=== PATIENT | male | born 1990 | race Caucasian/White ===

== ENCOUNTER 2018-03-17 23:26 | Inpatient (IN) | payer OTHER ==
[2018-03-17] MEDS ORDERED: VANCOMYCIN IV PER PHARMACY 1 EACH MISC MISCELLANE PRN (23:49)
[2018-03-18] MEDS ORDERED: VANCOMYCIN 1,250 MG in SODIUM CHLORIDE 0.9% 250 ML IVPB ONE (00:30)
--- NOTE | 2018-03-18 00:42 | XR ---
EXAMINATION TYPE: XR hand complete LT DATE OF EXAM: 03/18/2018 COMPARISON: NONE HISTORY: Pain and swelling TECHNIQUE: 3 views FINDINGS: There is soft tissue swelling on the dorsum of the hand. Metacarpals are intact. I see no f racture nor dislocation. There are no erosions. IMPRESSION: Soft tissue swelling. No fracture seen.
[2018-03-18 01:15] LABS: Basophils % (A) 0 %; Eosinophils # (A) 0.2 k/uL (0-0.7); Eosinophils % (A) 2 %; HCT 37.2 % (39.0-53.0); HGB 12.4 gm/dL (13.0-17.5); Lymphocytes # (A) 1.4 k/uL (1.0-4.8); Lymphocytes % (A) 16 %; MCH 28.9 pg (25.0-35.0); MCHC 33.3 g/dL (31.0-37.0); MCV 86.7 fL (80.0-100.0); Monocytes # (A) 0.8 k/uL (0-1.0); Monocytes % (A) 8 %; Neutrophils # (A) 6.7 k/uL (1.3-7.7); Neutrophils % (A) 72 %; Platelet Count 233 k/uL (150-450); RBC 4.29 m/uL (4.30-5.90); RDW 13.3 % (11.5-15.5); WBC 9.2 k/uL (3.8-10.6)
[2018-03-18 01:21] LABS: ALT 20 U/L (21-72); AST 13 U/L (17-59); Albumin 4.2 g/dL (3.5-5.0); Alkaline Phosphatase 100 U/L (38-126); Anion Gap 7 mmol/L; Blood Urea Nitrogen 11 mg/dL (9-20); Calcium 9.2 mg/dL (8.4-10.2); Carbon Dioxide 27 mmol/L (22-30); Chloride 107 mmol/L (98-107); Glucose 94 mg/dL (74-99); Potassium 4.6 mmol/L (3.5-5.1); Sodium 141 mmol/L (137-145); Total Bilirubin 0.4 mg/dL (0.2-1.3); Total Protein 7.4 g/dL (6.3-8.2)
[2018-03-18 01:22] LABS: INR 0.9 (<1.2)
[2018-03-18 01:23] LABS: Partial Thromboplastin Time 25.3 sec (22.0-30.0); Prothrombin Time 10.2 sec (9.0-12.0)
--- NOTE | 2018-03-18 02:02 | ED ---
General Adult HPI - General Chief complaint: Skin/Abscess/Foreign Body Stated complaint: Abcess L hand Source: patient, RN notes reviewed Mode of arrival: ambulatory Limitations: no limitations - History of Present Illness Initial comments: 27-year-old male presents to the emergency department for a chief complaint of left hand swelling 4 days. Patient states he tried to inject Suboxone into his left hand. He states he "missed his vein". Patient states that since then he has had hand swelling and pain. He denies fevers or chills. He does admit to previous history of heroin abuse. Denies any known MRSA history. Patient has no other complaints at this time including shortness of breath, chest pain, abdominal pain, nausea or vomiting, headache, or visual changes. - Related Data Allergies Allergy/AdvReac Type Severity Reaction Status Date / Time No Known Allergies Allergy Verified 03/17/18 23:38 Review of Systems ROS Statement: Those systems with pertinent positive or pertinent negative responses have been documented in the HPI. ROS Other: All systems not noted in ROS Statement are negative. Past Medical History Past Medical History: No Reported History History of Any Multi-Drug Resistant Organisms: None Reported Additional Past Surgical History / Comment(s): Surgey on previous abcess Past Psychological History: No Psychological Hx Reported Smoking Status: Current every day smoker Past Alcohol Use History: Rare Past Drug Use History: Heroin, IV Drug Use, Marijuana, Prescription Drug Abuse General Exam Limitations: no limitations General appearance: alert, in no apparent distress Head exam: Present: atraumatic, normocephalic, normal inspection Eye exam: Present: normal appearance, PERRL, EOMI. Absent: scleral icterus, conjunctival injection, periorbital swelling ENT exam: Present: normal exam, mucous membranes moist Neck exam: Present: normal inspection, full ROM. Absent: tenderness, meningismus, lymphadenopathy, thyromegaly Respiratory exam: Present: normal lung sounds bilaterally. Absent: respiratory distress, wheezes, rales, rhonchi, stridor Cardiovascular Exam: Present: regular rate, normal rhythm, normal heart sounds. Absent: systolic murmur, diastolic murmur, rubs, gallop, clicks Extremities exam: Present: tenderness (Tenderness noted over the general left hand worse on the medial aspect.), normal capillary refill (Capillary refill is less than 2 seconds in the distal digits of the left hand.), other (Significant edema noted of left hand, worse on lateral aspect). Absent: full ROM (Patient does have limited range of motion of the left fourth and fifth fingers. But is able to flex and extend at the MCP joint about 15.) Neurological exam: Present: alert, oriented X3, CN II-XII intact Psychiatric exam: Present: normal affect, normal mood Course Vital Signs 03/17/18 23:34 Temperature 98.2 F Pulse Rate 103 H Respiratory 20 Rate Blood Pressure 149/94 O2 Sat by Pulse 99 Oximetry Medical Decision Making - Medical Decision Making 27-year-old male presents to the emergency department for a chief complaint of left hand pain and swelling. 4 days ago patient attempted to inject Suboxone into the left hand. He has had pain and swelling worsening since that time. CBC CMP unremarkable. Lactic 1.1. Blood cultures pending. Given patient's history of IV drug abuse vancomycin was started. X-ray shows soft tissue swelling, no fracture seen. No foreign bodies noted such as needed. At this time no evidence of compartment syndrome this patient does have capillary refill intact in the left fingers. Patient will be admitted for further management. - Lab Data Result diagrams: 03/18/18 00:55 03/18/18 00:55 Lab Results 03/18/18 03/18/18 03/18/18 Range/Units 00:55 00:55 00:55 WBC 9.2 (3.8-10.6) k/uL RBC 4.29 L (4.30-5.90) m/uL Hgb 12.4 L (13.0-17.5) gm/dL Hct 37.2 L (39.0-53.0) % MCV 86.7 (80.0-100.0) fL MCH 28.9 (25.0-35.0) pg MCHC 33.3 (31.0-37.0) g/dL RDW 13.3 (11.5-15.5) % Plt Count 233 (150-450) k/uL Neutrophils % 72 % Lymphocytes % 16 % Monocytes % 8 % Eosinophils % 2 % Basophils % 0 % Neutrophils # 6.7 (1.3-7.7) k/uL Lymphocytes # 1.4 (1.0-4.8) k/uL Monocytes # 0.8 (0-1.0) k/uL Eosinophils # 0.2 (0-0.7) k/uL Basophils # 0.0 (0-0.2) k/uL PT (9.0-12.0) sec INR (<1.2) APTT (22.0-30.0) sec Sodium 141 (137-145) mmol/L Potassium 4.6 (3.5-5.1) mmol/L Chloride 107 (98-107) mmol/L Carbon Dioxide 27 (22-30) mmol/L Anion Gap 7 mmol/L BUN 11 (9-20) mg/dL Creatinine 0.70 (0.66-1.25) mg/dL Est GFR (CKD-EPI)AfAm >90 (>60 ml/min/1.73 sqM) Est GFR (CKD-EPI)NonAf >90 (>60 ml/min/1.73 sqM) Glucose 94 (74-99) mg/dL Plasma Lactic Acid Abe 1.1 (0.7-2.0) mmol/L Calcium 9.2 (8.4-10.2) mg/dL Total Bilirubin 0.4 (0.2-1.3) mg/dL AST 13 L (17-59) U/L ALT 20 L (21-72) U/L Alkaline Phosphatase 100 (38-126) U/L Total Protein 7.4 (6.3-8.2) g/dL Albumin 4.2 (3.5-5.0) g/dL 03/18/18 Range/Units 00:55 WBC (3.8-10.6) k/uL RBC (4.30-5.90) m/uL Hgb (13.0-17.5) gm/dL Hct (39.0-53.0) % MCV (80.0-100.0) fL MCH (25.0-35.0) pg MCHC (31.0-37.0) g/dL RDW (11.5-15.5) % Plt Count (150-450) k/uL Neutrophils % % Lymphocytes % % Monocytes % % Eosinophils % % Basophils % % Neutrophils # (1.3-7.7) k/uL Lymphocytes # (1.0-4.8) k/uL Monocytes # (0-1.0) k/uL Eosinophils # (0-0.7) k/uL Basophils # (0-0.2) k/uL PT 10.2 (9.0-12.0) sec INR 0.9 (<1.2) APTT 25.3 (22.0-30.0) sec Sodium (137-145) mmol/L Potassium (3.5-5.1) mmol/L Chloride (98-107) mmol/L Carbon Dioxide (22-30) mmol/L Anion Gap mmol/L BUN (9-20) mg/dL Creatinine (0.66-1.25) mg/dL Est GFR (CKD-EPI)AfAm (>60 ml/min/1.73 sqM) Est GFR (CKD-EPI)NonAf (>60 ml/min/1.73 sqM) Glucose (74-99) mg/dL Plasma Lactic Acid Abe (0.7-2.0) mmol/L Calcium (8.4-10.2) mg/dL Total Bilirubin (0.2-1.3) mg/dL AST (17-59) U/L ALT (21-72) U/L Alkaline Phosphatase (38-126) U/L Total Protein (6.3-8.2) g/dL Albumin (3.5-5.0) g/dL Disposition Clinical Impression: Infection of left hand, IV drug abuse Disposition: ADMITTED IP TO THIS HOSP Condition: Fair Is patient prescribed a controlled substance at d/c from ED?: No Referrals: Dakotah Maravilla MD [Primary Care Provider] - 1-2 days Time of Disposition: 02:13
[2018-03-18] MEDS ORDERED: ACETAMINOPHEN TAB 325 MG TAB PO PRN (02:09)
[2018-03-18] MEDS ORDERED: ONDANSETRON 4 MG/2 ML VIAL IVP PRN (02:09)
[2018-03-18] MEDS ORDERED: NALOXONE 0.4 MG/ML 1 ML VIAL IV PRN (02:09)
[2018-03-18] MEDS: KETOROLAC 30 MG/ML 1 ML VIAL IVP PRN ×4 (02:44→23:07)
[2018-03-18] MEDS: SODIUM CHLORIDE 0.9% 1,000 ML IV SCH ×3 (04:05→22:13)
--- NOTE | 2018-03-18 07:31 | P.HPIM ---
History of Present Illness H&P Date: 03/18/18 Chief Complaint: Hand swelling 27-year-old male with history of drug abuse. Patient presented to the hospital with 3 day history of left hand swelling and pain. He denies any fevers or chills. He admits to injecting Suboxone crushed pills into his hands due to his addiction seeking a high. Patient tried to self medicate took some steroids that he had a home which initially helped with the swelling however since Monday the pain got worse and swelling continued to progress. Patient can't make a fist due to the swelling. But denies any numbness or tingling in the fingertips. He denies any chest pain trouble breathing fevers chills nausea vomiting abdominal pain or chest pain. Patient reports that this has happened before due to similar event of injecting self with drugs. In the ED cultures were obtained and patient was started on vancomycin. Hand x- ray showed no fractures, only showed some swollen soft tissue Review of Systems Pertinent positives as noted in HPI. All other systems were reviewed and are negative Past Medical History Past Medical History: No Reported History History of Any Multi-Drug Resistant Organisms: None Reported Additional Past Surgical History / Comment(s): Surgey on previous abcess Past Psychological History: No Psychological Hx Reported Smoking Status: Current every day smoker Past Alcohol Use History: Rare Past Drug Use History: Heroin, IV Drug Use, Marijuana, Prescription Drug Abuse Medications and Allergies Allergies Allergy/AdvReac Type Severity Reaction Status Date / Time No Known Allergies Allergy Verified 03/17/18 23:38 Physical Exam Vitals: Vital Signs Temp Pulse Resp BP Pulse Ox 03/18/18 02:55 85 16 131/86 98 03/17/18 23:34 98.2 F 103 H 20 149/94 99 Intake and Output 03/17/18 03/17/18 03/18/18 14:59 22:59 06:59 Intake Total 490 Balance 490 Intake: Intake, IV Titration 490 Amount Sodium Chloride 0.9% 1, 240 000 ml @ 120 mls/hr IV . Q8H20M STELLA Rx#:[id number] Vancomycin 1,250 mg In 250 Sodium Chloride 0.9% 250 ml @ 250 mls/hr IVPB Q8H STELLA Rx#:[id number] Other: Weight 65.771 kg Constitutional: No acute distress, conversant, pleasant Eyes: Anicteric sclerae, moist conjunctiva, no lid-lag Pupils equal round reactive to light ENMT: NC/AT Oropharynx clear, no erythema, no exudates Neck: Supple, FROM, no masses, or JVD No carotid bruits No thyromegaly Lungs: Clear to auscultation Clear to percussion Normal respiratory effort, no accessory muscle use Cardiovascular: Heart regular in rate and rhythm, No murmurs, gallops, or rubs No peripheral edema Abdominal: Soft Nontender, no guarding, rebound or rigidity Abdomen moving with respiration Normoactive bowel sounds No hepatomegaly, No splenomegaly No palpable mass No abdominal wall hernia noted Skin: Normal temperature, tone, texture, turgor No subcutaneous nodules No rash, lesions No ulcers Extremities: Swollen left hand, tenderness to palpation especially over the medial aspect of the hand over the hyperthenar muscle which is the injection site seems like there is an area of collection with induration and erythema. The whole hand is swollen fingers are so only slightly swollen. Capillary refill is immediate in all fingers sensation is intact over all fingers and hand. No digital cyanosis No clubbing Pedal pulses intact and symmetrical Radial pulses intact and symmetrical No calf tenderness Psychiatric: Alert and oriented to person, place and time Appropriate affect fair judgment Neuro Muscles Strength 5/5 in all 4 extremities Sensation to light touch grossly present throughout Cranial nerves II-XII grossly intact No focal sensory deficits Lymphatics: no palpable cervical or supraclavicular , or inguinal lymph nodes Results CBC & Chem 7: 03/18/18 00:55 03/18/18 00:55 Labs: Abnormal Lab Results - Last 24 Hours (Table) 03/18/18 03/18/18 Range/Units 00:55 00:55 RBC 4.29 L (4.30-5.90) m/uL Hgb 12.4 L (13.0-17.5) gm/dL Hct 37.2 L (39.0-53.0) % AST 13 L (17-59) U/L ALT 20 L (21-72) U/L Thrombosis Risk Factor Assmnt - Choose All That Apply Any of the Below Risk Factors Present?: No Other Risk Factors: No Other congenital or acquired thrombophilia - If yes, enter type in comment: No Thrombosis Risk Factor Assessment Level: Very Low Risk Assessment and Plan Assessment: 27-year-old male with history of drug abuse admitted as an inpatient with anticipated length of stay more than 48 hours due to cellulitis and possible abscess in the left hand with hand swelling. Patient admitted for IV antibiotics and orthopedic evaluation Plan: Left hand cellulitis and possible abscess with swelling. Cultures obtained Vancomycin Patient will require hand surgery evaluation, orthopedic consulted Elevation of the hand Close monitoring of neurovascular exam of the left hand NSAIDs to help with swelling DVT prophylaxis heparin subcu 3 times a day Preformed a thorough record review from recent hospitalization previous admissions for injection site infections and cellulitis Surrogate decision-maker: Patient mother CODE STATUS: Full code Discussed with: Patient, ER, RN Anticipated discharge: 48-[address]: Pending clinical course A total of 60 minutes was spent on the care of this complex patient more than 50 % of the time was spent in counseling and care coordination.
--- NOTE | 2018-03-18 08:59 | P.CNOR ---
History of Present Illness - [facility] Consult date: 03/18/18 History of present illness: The patient is a right-hand dominant 27-year-old male with a long-standing history of drug abuse who presents admitted to internal medicine with a left hand abscess. According to the patient he placed a Suboxone tablet in his mouth , chewed it in his mouth until it was a fine paste, and then injected it along the ulnar border of his hand to get high. He's had increasing pain and swelling in the left hand. He initially tried to self medicate with oral steroids. He had increasing pain and swelling so presented to the emergency department. He was admitted to internal medicine and an orthopedic surgery consult was placed. This morning the patient is complaining of isolated pain in his left hand. He denies fevers or chills. Unfortunately the patient had a large breakfast at 7 AM of eggs and potatoes as he was not made nothing by mouth after the surgical consult was placed. Past Medical History Past Medical History: No Reported History History of Any Multi-Drug Resistant Organisms: None Reported Additional Past Surgical History / Comment(s): Surgey on previous abcess Past Psychological History: No Psychological Hx Reported Smoking Status: Current every day smoker Past Alcohol Use History: Rare Past Drug Use History: Heroin, IV Drug Use, Marijuana, Prescription Drug Abuse Medications and Allergies Home Medications Medication Instructions Recorded Confirmed Type Ibuprofen [Motrin Ib] 400 mg PO Q6H PRN 03/18/18 03/18/18 History Allergies Allergy/AdvReac Type Severity Reaction Status Date / Time No Known Allergies Allergy Verified 03/18/18 08:27 Physical Examination The patient is resting comfortably in bed and is in no apparent distress. He is alert and easily able to answer questions. His head is normocephalic and atraumatic. He demonstrates nonlabored breathing with symmetric chest expansion. His abdomen is nonobese. A focused examination of the left upper extremity was conducted. On inspection there is erythema and swelling diffusely over the ulnar border of the hand. There is a large fluctuant mass over the hyperthenar eminence over the ulnar border of the hand. There are needle tracks along the ulnar border of the hand. There is no active drainage or subcutaneous crepitance. The remainder of the hand is swollen but there are no areas of fluctuance or tenderness. Sensation is intact to light touch throughout the left hand. He has pain-free motion of all fingers. Radial pulses palpable. The fingers are warm and well perfused with brisk capillary refill. Results - Labs Labs: Abnormal Lab Results - Last 24 Hours (Table) 03/18/18 03/18/18 Range/Units 00:55 00:55 RBC 4.29 L (4.30-5.90) m/uL Hgb 12.4 L (13.0-17.5) gm/dL Hct 37.2 L (39.0-53.0) % AST 13 L (17-59) U/L ALT 20 L (21-72) U/L H & H 03/18/18 Range/Units 00:55 Hgb 12.4 L (13.0-17.5) gm/dL Hct 37.2 L (39.0-53.0) % Coagulation 03/18/18 Range/Units 00:55 INR 0.9 (<1.2) Result Diagrams: 03/18/18 00:55 03/18/18 00:55 Assessment and Plan (1) IV drug abuse Current Visit: Yes Status: Acute Code(s): F19.10 - OTHER PSYCHOACTIVE SUBSTANCE ABUSE, UNCOMPLICATED SNOMED Code(s): 226653806 (2) Infection of left hand Current Visit: Yes Status: Acute Code(s): L08.9 - LOCAL INFECTION OF THE SKIN AND SUBCUTANEOUS TISSUE, UNSP SNOMED Code(s): 667064188 Plan: The patient is a current cigarette smoker, IV drug abuser, and prescription medication abuser who is currently admitted to internal medicine with a left hand abscess. I recommend incision and drainage of the abscess in his hand. The patient has previously had similar infections in the contralateral arm that have required surgical debridements. He is well aware of the potential risks following surgery. He also understands that he is at a higher risk of having a complication due to his cigarette smoking and drug abuse. Unfortunately the patient was not made NPO and had a large breakfast at 7 AM this morning. I spoke with anesthesia and they would like to wait 8 hours prior to providing anesthesia to this patient. We will plan on surgical debridement later this afternoon when he has been NPO for 8 hours. Following surgery he will need an infectious disease and wound consultation for management of his antibiotics and wound care going forward. Time with Patient: Greater than 30
[2018-03-18] MEDS: HEPARIN SODIUM,PORCINE 5,000 UNIT/ML 1 ML VIAL SQ SCH ×3 (11:01→23:07)
[2018-03-18] MEDS: VANCOMYCIN 1,250 MG in SODIUM CHLORIDE 0.9% 250 ML IVPB SCH ×2 (11:02→18:27)
--- NOTE | 2018-03-18 12:24 | P.PN ---
Progress Note - Text Progress Note Date: 03/18/18 27-year-old male with PMH of IV drug use presents to the ED for a three-day history of left hand swelling and pain after injecting into his left hand. Patient was seen and examined around 12:15 PM. No acute events overnight. Patient continues to complain of left hand pain and swelling, 8 out of 10 in severity. Patient states that portal brings it down to about a 4. He denies any chest pain, shortness of breath or palpitations. No fever or chills. No nausea or vomiting. The left hand is grossly swollen. Fluctuant mass over the hyperthenar eminence. No drainage. Sensation is intact to touch throughout the left hand. Unable to make a fist due to pain. Radial pulses 2+. Left and cellulitis and possible abscess IV drug use He has been evaluated by orthopedic surgery and there is plans for incision and drainage in the afternoon. We will consult infectious disease. We will continue vancomycin IV per levels. Tylenol or Toradol as needed for pain. We'll follow cultures.
[2018-03-18] MEDS ORDERED: MIDAZOLAM 2 MG/2 ML VIAL ONE (14:54)
[2018-03-18] MEDS ORDERED: PROPOFOL 10 MG/ML 20 ML VIAL IV ONE (14:54)
[2018-03-18] MEDS ORDERED: KETAMINE 10 MG/ML 20 ML VIAL ONE (14:54)
[2018-03-18] MEDS ORDERED: KETOROLAC 30 MG/ML 1 ML VIAL ONE (14:54)
[2018-03-18] MEDS ORDERED: SODIUM CHLORIDE 0.9% 1,000 ML IV ONE (14:59)
[2018-03-18] MEDS ORDERED: BUPIVACAINE (PF) 0.25% 30 ML VIAL SQ ONE (15:14)
--- NOTE | 2018-03-18 15:42 | P.OP ---
Date of Procedure: 03/18/18 Preoperative Diagnosis: 1. Left hand hypothenar abscess 2. Current every day cigarette smoker 3. Current prescription drug abuser 4. History of IV drug abuse 5. History of prior deep abscess requiring surgical drainage and the contralateral hand Postoperative Diagnosis: Same Procedure(s) Performed: Incision and drainage of left hand hypothenar abscess Anesthesia: MAC Surgeon: Brennan Akbar Want Ad Receiver #1: Abril Bryan Estimated Blood Loss (ml): 10 IV fluids (ml): 500 Pathology: other (Deep cultures sent) Condition: stable Disposition: PACU Indications for Procedure: The patient is a 27-year-old male with a medical history significant for cigarette smoking, prescription drug abuse, a history of prior IV drug abuse and previous infection in the right hand requiring surgical debridement who is admitted to internal medicine with a left hand abscess. According to the patient he was taking Suboxone pills, checking them up into a fine paste, and injecting them into his left hand. This past Monday he developed increased pain and swelling in the left hand. He tried to self medicate with oral steroids. His pain and swelling increased and he presented to the ER yesterday. He was admitted to internal medicine for IV antibiotics and a surgical consultation. I examined the patient this morning and he was found to have an area of fluctuance over the left hyperthenar eminence. I discussed and recommended surgical debridement in the operating room. The patient is well aware of the potential risks and complications of surgery having previously undergone a similar procedure for the same problem in the right arm. The risks discussed include risk of anesthesia, superficial infection, deep infection, spread of the infection throughout his hand and into the forearm, systemic dissemination of the infection, damage to local blood vessels or nerves, damage to tendon the structures, spread of the infection to the bone or joints in the hand and arm, need for further surgery, medical complications, and possibly loss of life or limb. The patient voiced his understanding of this. We also discussed that he is at a much higher risk of having a complication due to his current cigarette smoking and drug abuse. Operative Findings: Prior to receiving anesthesia a detailed examination of the left arm was conducted. On inspection there was a tense abscess and needle tracts over the height hypo thenar eminence of the hand. The remainder of the hand was diffusely swollen with mild erythema, but minimal tenderness and no other areas of fluctuance. There was a large amount of foul-smelling pus expressed from the left hand. 2 deep cultures were taken and sent to the lab. Description of Procedure: The patient was identified in preoperative holding and the correct left arm was marked with my initials. I reviewed the consent form with the patient and all of his questions were answered. The patient was then brought back to the operating room. A sedation with propofol was given by anesthesia. His arm was positioned on an arm table. A tourniquet was applied to the proximal aspect of the left arm but was not inflated. A timeout was performed identifying the correct patient, operative extremity, and procedure. 5 mL's of half percent Marcaine was injected around the hyperthenar eminence. A longitudinal incision was then made directly over the hyperthenar eminence and area of maximum fluctuance. There was a tense abscess and immediately upon cutting into the subcutaneous tissue pus was expressed and shot across the room. There is a large amount of foul-smelling pus. A medium hemostat was then used to probe the wound and break up loculations. The abscess over the ulnar border of the hand was thoroughly decompressed. The wound was then copiously irrigated with 1 L of sterile saline and cystoscopy tubing. The wound was packed with iodoform and left open to drain. A sterile dressing was applied. The patient was awoken from his anesthetic and transferred back to PACU having had the procedure well. Plan: The patient is to receive IV antibiotics under the discretion of infectious disease. Deep cultures were taken and are pending. We will plan on changing his dressing and pulling out the iodoform tomorrow. At that time he can start twice daily warm water soaks or whirlpools if available at this facility. We will continue to closely monitor his hand, but at the present time have no plans for further surgical intervention unless he worsens. IV antibiotics and wound care will be deferred to infectious disease and the wound team. Will continue to closely follow while he is in the hospital.
[2018-03-18 15:57] LABS: Appearance,Urine Clear (Clear); Bilirubin,Urine Negative (Negative); Blood,Urine Negative (Negative); Color,Urine Light Yellow; Glucose,Urine (UA) Negative (Negative); Ketones,Urine Negative (Negative); Leukocyte Esterase,Urine Negative (Negative); Nitrite,Urine Negative (Negative); PH, Urine 6.5 (5.0-8.0); Protein,Urine Negative (Negative); Urobilinogen,Urine <2.0 mg/dL (<2.0)
[2018-03-19] MEDS: VANCOMYCIN 1,250 MG in SODIUM CHLORIDE 0.9% 250 ML IVPB SCH ×2 (01:33→09:39)
[2018-03-19] MEDS: SODIUM CHLORIDE 0.9% 1,000 ML IV SCH ×3 (04:33→21:47)
--- NOTE | 2018-03-19 06:21 | CONS ---
CONSULTATION DATE OF SERVICE: 03/18/2018 REASON FOR CONSULTATION: Left hand abscess. HISTORY OF PRESENT ILLNESS: The patient is a 27-year-old male with past medical history significant for IV drug use. The patient routinely injects into his left hand and wrist area. The patient did mention that he missed injecting into vein about 3 days ago and subsequently started having pain and swelling to the left hand area, mostly on the lateral side. The patient did admit to the pain to be throbbing at times sharp almost 6 to 7 out of 10, when he presented to the hospital with associated swelling and redness. The patient did have some chills, but did not recall any high-grade fever with these symptoms. The patient was evaluated by the ER physician. On arrival to the ER, the patient did not have any high-grade fever. His temperature has been 99.1. The patient's white count was also elevated and the patient did have x-rays of the hand, which shows soft tissue swelling, no fracture seen. The patient was evaluated by Orthopedics, diagnosed with an abscess. He was taken to the OR this afternoon, diagnosed with left hand hypothenar abscess, status post incision and drainage of this abscess. Culture has been obtained which are currently pending. The patient was started on vancomycin. Infectious Disease was consulted for further recommendation regarding antibiotic therapy. REVIEW OF SYSTEMS: Positive points have been mentioned in HPI. Rest of the systems has been negative. PAST MEDICAL HISTORY: IV drug use. abscess. PAST SURGICAL HISTORY: Surgery for drainage of the abscess. SOCIAL HISTORY: Positive for smoking. Rarely drinks. Admit to heroin and IV drug use. FAMILY HISTORY: No pertinent findings noticed. ALLERGIES: No known drug allergies. MEDICATIONS: Medications include the patient is currently on Tylenol, heparin, Toradol, vancomycin 1250 q.8 hour, Zofran. PHYSICAL EXAMINATION: On examination, blood pressure is 114/61 with a pulse of 102, temperature 99.1. He is 97% on room air. General description is a young male lying in bed in no distress. No tachypnea or accessory muscle of respiration use. HEENT examination shows slight pallor. No scleral icterus. Oral mucous membrane is dry. No pharyngeal erythema or thrush. NECK: Trachea central. No thyromegaly. LUNGS: Unlabored breathing, clear to auscultation anteriorly. HEART: S1, S2. Regular rate and rhythm. ABDOMEN: Soft, no tenderness. No guarding or rigidity. EXTREMITIES: No edema of feet. The left hand is currently dressed up, no obvious drainage on the dressing. LABS: Hemoglobin is 12.4, white count 9.2. BUN of 11, creatinine 0.70. Electrolytes are normal. Liver enzymes are normal. Culture obtained currently pending. DIAGNOSTIC IMPRESSION AND PLAN: Patient with left hand abscess from injection drug use and more likely from a gram- positive skin alli, gram-negative infection status post drainage. The patient currently does not look toxic or septic. PLAN: 1. Vancomycin pharmacy to dose target of 15 Vanco trough closely. 2. IV fluids. 3. We will follow on his clinical condition as well as culture to further adjust medication if needed. Thank you for this consultation. Will follow this patient along with you. MMALHAJIL / IJN: [id number] /
[2018-03-19] MEDS: KETOROLAC 30 MG/ML 1 ML VIAL IVP PRN ×3 (07:23→21:43)
[2018-03-19] MEDS: HEPARIN SODIUM,PORCINE 5,000 UNIT/ML 1 ML VIAL SQ SCH ×2 (07:25→17:07)
[2018-03-19] MEDS ORDERED: VANCOMYCIN TROUGH DUE 1 EACH MISC MISCELLANE ONE (08:00)
--- NOTE | 2018-03-19 09:17 | P.PN ---
Subjective Progress Note Date: 03/19/18 ( ) This patient is a lmyin-[id number] 27-year-old male with a long-standing history of drug abuse that is admitted to internal medicine for a left hand abscess. Per patient, he placed a Suboxone tablet in his mouth, chewed it until it was a paste, and injected it along the ulnar border of his hand to get high. He then experienced increasing swelling and pain to the hand, therefore he presented to the emergency department. He was admitted to internal medicine and an orthopedic consult was placed. Patient was taken to the operating room yesterday afternoon with Dr. Akbar for an incision and drainage of the left hand abscess. Currently, patient states he is doing well this morning. He states he is having pain in the left hand. He is tolerated diet well. He denies chest pain, shortness of breath, fevers, or chills. Objective - Vital Signs Vital signs: Vital Signs Temp 98.8 F 03/19/18 07:22 Pulse 88 03/19/18 07:22 Resp 16 03/19/18 07:33 BP 153/62 03/19/18 07:22 Pulse Ox 97 03/19/18 07:22 Intake & Output 03/18/18 03/19/18 03/19/18 18:59 06:59 18:59 Intake Total 570 Output Total 800 600 Balance -230 -600 Intake: IV 200 Intake, IV Titration 370 Amount Sodium Chloride 0.9% 1, 120 000 ml @ 0 mls/hr IV .STK -[facility] Rx#:[id number] Vancomycin 1,250 mg In 250 Sodium Chloride 0.9% 250 ml @ 250 mls/hr IVPB Q8H [facility] Rx#:[id number] Output: Urine 800 600 Other: # Voids 2 - Exam On examination, the patient is sitting up in bed in no acute distress. Patient is alert and oriented 3. Inspection of the left hand, it is dressed in an Max wrap. Dressing is taken down and reveals an incision along the hypothenar eminence, packed with iodoform. Small amount of foul smelling pus present on iodoform. Left hand is diffusely swollen. Left hand is tender to palpation along ulnar border. Patient is able to wiggle fingers. Fingers are warm and well -perfused. Sensation is intact to light touch of the hand. Iodoform is removed from incision. No evidence of pus in wound. - Labs CBC & Chem 7: 03/18/18 00:55 03/18/18 00:55 Labs: Microbiology - Last 24 Hours (Table) 03/18/18 00:55 Blood Culture - Preliminary Blood No Growth after 24 hours 03/18/18 Unknown Urine Culture - Preliminary Urine,Clean Catch Assessment and Plan Assessment: Left hand abscess status-post incision and drainage IV drug abuse Plan: - Iodoform removed from the left hand wound. Warm water soaks twice a day. - Deep cultures taken intraoperatively, we'll continue to follow. - Infectious disease consulted for antibiotics and wound care management. - We will continue to monitor his hand and follow closely. - Patient discussed with Dr. Akbar.
[2018-03-19] MEDS: VANCOMYCIN 1,500 MG in SODIUM CHLORIDE 0.9% 250 ML IVPB SCH (17:07)
[2018-03-20] MEDS: VANCOMYCIN 1,500 MG in SODIUM CHLORIDE 0.9% 250 ML IVPB SCH ×3 (01:03→17:48)
[2018-03-20 01:21] VITALS: RESP 16
[2018-03-20] MEDS: SODIUM CHLORIDE 0.9% 1,000 ML IV SCH ×3 (04:48→21:16)
--- NOTE | 2018-03-20 07:13 | PN ---
PROGRESS NOTE DATE OF SERVICE: 03/19/2018 REASON FOR FOLLOWUP: Left hand abscess. INTERVAL HISTORY: The patient is currently afebrile. He is breathing comfortably. Pain to the left hand is currently controlled. Patient denies having any chest pain, shortness of breath or cough. No abdominal pain or any diarrhea. PHYSICAL EXAMINATION: On examination, blood pressure 125/77 with a pulse of 76, temperature 98.7. He is 98% on room air. General description is a young male lying in bed in no acute in no distress. RESPIRATORY SYSTEM: Unlabored breathing, clear to auscultation anteriorly. HEART: S1, S2. Regular rate and rhythm. ABDOMEN: Soft, no tenderness. Left hand still has an area of swelling and redness with no significant slough tissue or drainage. LABS: Wound culture showing gram-positive cocci. Blood culture negative. DIAGNOSTIC IMPRESSION AND PLAN: Patient with left hand abscess, status post drainage. Culture currently showing gram- positive cocci, possible . The patient is currently on vancomycin, to continue. Local wound care with Aquacel silver dressing. Continue supportive care. MMODL / IJN: [id number] /
--- NOTE | 2018-03-20 07:16 | PN ---
PROGRESS NOTE DATE OF SERVICE: 03/19/2018 PRESENTING COMPLAINT: Left hand abscess. INTERVAL HISTORY: This is a patient who has been injecting IV Suboxone, did develop abscess in the hypothenar eminence area, status post I and D of the pus was obtained. Dressing in place. The patient has been doing IV Suboxone for the last 2 years. He crushes, the tablets, mixes it with water, stopped doing IV heroin about 2 years ago. The patient does marijuana about once or twice a week and smokes half a pack of cigarettes a day. REVIEW OF SYSTEMS: Done for constitutional, cardiovascular, GI, pulmonary; relevant findings as above. CURRENT MEDICATIONS: Reviewed that include IV vancomycin, IV Toradol. PHYSICAL EXAMINATION: Temperature 98.7, pulse 76, respiration 12, blood pressure 125/77, pulse ox 98% on room air. GENERAL APPEARANCE: Sitting up, comfortable. EYES: Pupils equal, conjunctivae are normal. NECK: JVD not raised, mass not palpable. RESPIRATORY: Effort normal. Lungs are clear. CARDIOVASCULAR: First and second sounds are normal, no edema. ABDOMEN: Soft, nontender. Liver and spleen not palpable. PSYCHIATRY: Alert and oriented x3. Mood and affect normal. EXTREMITIES: Left hand in a dressing. INVESTIGATIONS: No blood work from today. Vancomycin trough is noted. Cultures are pending. ASSESSMENT: 1. Left hand hypothenar abscess status post I and D, cultures pending. 2. Left hand cellulitis, status post from IV needle. 3. IV Suboxone misuse. 4. Chronic nicotine dependence, patient is a cigarette smoker. 5. Recreational marijuana use. PLAN: The patient is counseled at length about avoiding use of recreational drugs and the fact that he could no lose his hand to the worst with these activities for recreation. Patient is getting Toradol for his anti-inflammatory affect and also further wound care by Orthopedics. Patient also getting IV fluids. Will give the patient a nicotine patch nicotine patch and also give the patient Tylenol around the clock. SMOKING CESSATION COUNSELING: More than 3 minutes was spent on this aspect of the case. Will give the patient 14 mg nicotine patch. MMODL / IJN: [id number] /
[2018-03-20 08:12] LABS: Basophils % (A) 0 %; Eosinophils # (A) 0.1 k/uL (0-0.7); Eosinophils % (A) 3 %; HCT 33.8 % (39.0-53.0); HGB 10.5 gm/dL (13.0-17.5); Lymphocytes # (A) 1.4 k/uL (1.0-4.8); Lymphocytes % (A) 25 %; MCH 27.8 pg (25.0-35.0); MCHC 31.1 g/dL (31.0-37.0); MCV 89.2 fL (80.0-100.0); Mean Platelet Volume 7.2; Monocytes # (A) 0.4 k/uL (0-1.0); Monocytes % (A) 8 %; Neutrophils # (A) 3.4 k/uL (1.3-7.7); Neutrophils % (A) 62 %; Platelet Count 186 k/uL (150-450); RBC 3.79 m/uL (4.30-5.90); RDW 13.2 % (11.5-15.5); WBC 5.5 k/uL (3.8-10.6)
[2018-03-20 08:21] LABS: Anion Gap 6 mmol/L; Blood Urea Nitrogen 13 mg/dL (9-20); Carbon Dioxide 24 mmol/L (22-30); Chloride 111 mmol/L (98-107); Glucose 93 mg/dL (74-99); Potassium 4.5 mmol/L (3.5-5.1); Sodium 141 mmol/L (137-145)
[2018-03-20] MEDS: ENOXAPARIN 40 MG/0.4 ML SYRINGE SQ SCH (08:57)
[2018-03-20] MEDS: KETOROLAC 30 MG/ML 1 ML VIAL IVP PRN ×3 (08:58→23:13)
--- NOTE | 2018-03-20 11:21 | P.PN ---
Subjective Progress Note Date: 03/20/18 This patient is a vvtkh-[id number] 27-year-old male with a long-standing history of drug abuse that is admitted to internal medicine for a left hand abscess. Per patient, he placed a Suboxone tablet in his mouth, chewed it until it was a paste, and injected it along the ulnar border of his hand to get high. He then experienced increasing swelling and pain to the hand, therefore he presented to the emergency department. He was admitted to internal medicine and an orthopedic consult was placed. Patient was taken to the operating room yesterday afternoon with Dr. Akbar for an incision and drainage of the left hand abscess. Today's postoperative day #2. Patient states he is doing well this morning. He states he is having mild pain in the left hand, although pain is well- controlled at this time. He is tolerating diet well. He states he refused to soak his hand in warm water yesterday morning, although he is willing to soak it this morning. He denies chest pain, shortness of breath, nausea, vomiting, fevers, or chills. Vital signs stable. Objective - Vital Signs Vital signs: Vital Signs Temp 98.0 F 03/20/18 07:41 Pulse 51 L 03/20/18 07:41 Resp 16 03/20/18 07:41 BP 125/73 03/20/18 07:41 Pulse Ox 98 03/20/18 07:41 Intake & Output 03/19/18 03/20/18 03/20/18 18:59 06:59 18:59 Intake Total 1090 118 Balance 1090 118 Intake: Intake, IV Titration 1090 Amount Sodium Chloride 0.9% 1, 840 000 ml @ 0 mls/hr IV .[facility]K [facility] Rx#:[id number] Vancomycin 1,500 mg In 250 Sodium Chloride 0.9% 250 ml @ 250 mls/hr IVPB Q8H [facility] Rx#:[id number] Oral 118 Other: Voiding Method Toilet # Voids 2 - Exam On examination, the patient is sitting up in bed in no acute distress. Patient is alert and oriented 3. Inspection of the left hand, it is dressed in an Max wrap. Dressing is taken down and reveals an incision along the hypothenar eminence. There is foul smelling pus draining from the incision with surrounding erythema. Left hand is diffusely swollen. Left hand is tender to palpation along ulnar border. Patient is able to wiggle fingers. Fingers are warm and well-perfused. Sensation is intact to light touch of the hand. - Labs CBC & Chem 7: 03/20/18 06:57 03/20/18 06:57 Labs: Abnormal Lab Results - Last 24 Hours (Table) 03/20/18 03/20/18 Range/Units 06:57 06:57 RBC 3.79 L (4.30-5.90) m/uL Hgb 10.5 L (13.0-17.5) gm/dL Hct 33.8 L (39.0-53.0) % Chloride 111 H (98-107) mmol/L Microbiology - Last 24 Hours (Table) 03/18/18 00:55 Blood Culture - Preliminary Blood No Growth after 48 hours 03/18/18 Unknown Urine Culture - Final Urine,Clean Catch 03/18/18 15:22 Gram Stain - Preliminary Hand - Left Wound Culture - Preliminary 03/18/18 15:22 Anaerobic Culture - Preliminary Hand - Left Assessment and Plan Assessment: Left hand abscess status-post incision and drainage IV drug abuse Plan: - CT scan of left hand with contrast ordered to rule out any additional fluid collections or abscesses. Wound care consulted for recommendations. - Antibiotics per infectious disease. Patient currently on vancomycin. - Will defer pain management to primary team. - Warm water soaks of the left hand twice a day. - Deep cultures taken intraoperatively, preliminary result gram-positive cocci. Will continue to follow. - We will continue follow patient closely. - Patient discussed with Dr. Akbar.
--- NOTE | 2018-03-20 12:54 | CT ---
EXAMINATION TYPE: CT hand LT w con DATE OF EXAM: 03/20/2018 COMPARISON: None HISTORY: Left hand redness, swelling and pain CT DLP: 144.2 mGycm Automated exposure control for dose reduction was used. Contrast CTA of the left hand was performed i n the axial coronal and sagittal planes. Bone and soft tissue window settings are reviewed. Contrast was administered. CONTRAST: Performed with IV Contrast, patient injected with 100 mL of Isovue 300. FINDINGS: There is extensive subcutaneous edema throughout the right hand compatible with cellulitis. At the pa lmar aspect of the left hand lateral to the fifth metacarpal is a focus of soft tissue air as well as cutaneous irregularity. Residual abscess is not identified with certainty at this time. There is no evidence for bone destruction to suggest osteomyelitis. No additional foci of air is seen. No fractur e. IMPRESSION: DIFFUSE CELLULITIS OF THE LEFT HAND. FOCUS OF SOFT TISSUE AIR AT THE SITE OF RECENT INCISION AND DRAI NAGE. NO RESIDUAL ABSCESS IDENTIFIED WITH CERTAINTY.
[2018-03-20] MEDS: ACETAMINOPHEN TAB 325 MG TAB PO SCH (23:11)
[2018-03-20] MEDS: ceFAZolin IN SWFI 2 GM/20 ML SYRINGE IVP SCH (23:11)
[2018-03-20] MEDS: CLINDAMYCIN 600 MG in DEXTROSE 5% IN WATER 50 ML IVPB SCH ×2 (23:11)
--- NOTE | 2018-03-20 23:49 | PN ---
PROGRESS NOTE DATE OF SERVICE: 03/20/2018. PRESENTING COMPLAINT: Left hand abscess. INTERVAL HISTORY: This patient IV Suboxone, presented with left hypothalamus abscess status post I and D growing strep. All the cultures are not back. Pain is getting better control. Also doing hand soaks. Otherwise, tolerating a diet. REVIEW OF SYSTEMS: Done for constitutional, cardiovascular, GI, pulmonary, musculoskeletal and relevant findings as above. The pain is better controlled. CURRENT MEDICATIONS: Reviewed that include IV vancomycin and IV Toradol. PHYSICAL EXAMINATION: VITAL SIGNS: Temperature 98.3 pulse 63, respiratory rate 16, blood pressure 107/64, pulse ox 99 percent on room air. GENERAL APPEARANCE: Sitting up, comfortable. EYES: Pupils are equal. Conjunctivae normal. NECK: JVD not raised. Mass not palpable. RESPIRATORY: Effort normal. LUNGS are clear. CARDIOVASCULAR 1st and 2nd sounds normal. No edema. ABDOMEN: Soft, nontender. Liver and spleen not palpable. PSYCHIATRY: Alert and oriented times three. Mood and affect normal. EXTREMITIES: Left hand in a dressing. Fingers have got preserved sensation and good capillary refill. INVESTIGATION: White count 5.5, hemoglobin 10.5 potassium 4.5. Microbiology showing beta-hemolytic Streptococcus. ASSESSMENT: 1. Left hand hypo thenar abscess, acute following IV Suboxone use, status post I and D, cultures growing beta-hemolytic strep. Final cultures pending. 2. Left hand cellulitis acute status post from IV drugs next IV Suboxone misuse. 3. Chronic nicotine dependence patient is a cigarette smoker. 4. Recreational marijuana use. PLAN: Continue current medication and treatment plan. Care was discussed with the patient. Depending on antibiotics will be decided after discussion with Orthopedics and ID. Care was discussed with the patient. MMODL / IJN: [id number] /
[2018-03-21] MEDS: ACETAMINOPHEN TAB 325 MG TAB PO SCH ×5 (00:01→23:09)
--- NOTE | 2018-03-21 00:13 | PN ---
PROGRESS NOTE DATE OF SERVICE: 03/20/2018. REASON FOR FOLLOWUP: Left hand abscess and cellulitis. INTERVAL HISTORY: The patient is currently afebrile. He is breathing comfortably. Denies having any chest pain. No abdominal pain or any worsening pain to the left hand wound area. PHYSICAL EXAMINATION: Blood pressure is 146/80 with a pulse of 67, temperature 98.1, he is 100% on room air. GENERAL DESCRIPTION: A young male lying in bed in no distress. RESPIRATORY SYSTEM: Unlabored breathing. Clear to auscultation anteriorly. HEART: S1, S2. Regular rate and rhythm. ABDOMEN: Soft. EXTREMITIES: Left hand wound covered with drainage on the dressing. LABS: Hemoglobin 10.5, white count 5.5, BUN of 13, creatinine 0.67. Wound culture with and Streptococcus. DIAGNOSTIC IMPRESSION AND PLAN: Patient with left hand abscess from IV drug use, culture now showing Streptococcus species and MRSA. At this time we will discontinue the vancomycin. Start the patient on cefazolin and clindamycin. Continue supportive care. MMODL / IJN: [id number] /
[2018-03-21] MEDS: SODIUM CHLORIDE 0.9% 1,000 ML IV SCH ×3 (05:33→23:18)
[2018-03-21] MEDS ORDERED: VANCOMYCIN TROUGH DUE 1 EACH MISC MISCELLANE ONE (08:00)
[2018-03-21] MEDS: ENOXAPARIN 40 MG/0.4 ML SYRINGE SQ SCH (09:16)
[2018-03-21] MEDS: CLINDAMYCIN 600 MG in DEXTROSE 5% IN WATER 50 ML IVPB SCH ×4 (09:17→17:18)
--- NOTE | 2018-03-21 10:29 | P.PN ---
Subjective The patient is doing better this morning and his pain is improved. He denies fevers or chills. Objective - Vital Signs Vital signs: Vital Signs Temp 97.6 F 03/21/18 09:23 Pulse 61 03/21/18 09:23 Resp 16 03/21/18 09:23 BP 129/73 03/21/18 09:23 Pulse Ox 99 03/21/18 09:23 Intake & Output 03/20/18 03/21/18 03/21/18 18:59 06:59 18:59 Intake Total 592 1200 Balance 592 1200 Intake: Intake, IV Titration 610 Amount Sodium Chloride 0.9% 1, 360 000 ml @ 120 mls/hr IV . Q8H20M [facility] Rx#:[id number] Vancomycin 1,500 mg In 250 Sodium Chloride 0.9% 250 ml @ 250 mls/hr IVPB Q8H [facility] Rx#:[id number] Oral 592 590 Other: Voiding Method Toilet Toilet # Voids 2 - Exam A focused exam of the left hand was conducted. On inspection there is an open wound over the ulnar border of the hand. There is a small amount of purulence fluid but the erythema and swelling is improving. There is no fluctuance or crepitance. No pain with passive range motion of the fingers. - Labs CBC & Chem 7: 03/20/18 06:57 03/20/18 06:57 Labs: Microbiology - Last 24 Hours (Table) 03/18/18 15:22 Gram Stain - Preliminary Hand - Left Wound Culture - Preliminary Beta Hemolytic Streptococcus F Gram Neg Bacilli 03/18/18 00:55 Blood Culture - Preliminary Blood No Growth after 72 hours Assessment and Plan (1) IV drug abuse Current Visit: Yes Status: Acute Code(s): F19.10 - OTHER PSYCHOACTIVE SUBSTANCE ABUSE, UNCOMPLICATED SNOMED Code(s): 006166028 (2) Infection of left hand Current Visit: Yes Status: Acute Code(s): L08.9 - LOCAL INFECTION OF THE SKIN AND SUBCUTANEOUS TISSUE, UNSP SNOMED Code(s): 042244780 Plan: The patient's wound appears improved after surgical incision and drainage. His computed tomography scan with contrast yesterday showed no further abscess in the hand or forearm. I would recommend continued warm water soaks and leaving the wound open to drain. I will defer further wound care and antibiotics to infectious disease. I have no plans for repeat surgical intervention at this time.
[2018-03-21] MEDS: ceFAZolin IN SWFI 2 GM/20 ML SYRINGE IVP SCH ×2 (12:58→17:18)
[2018-03-21] MEDS: KETOROLAC 30 MG/ML 1 ML VIAL IVP PRN (17:21)
--- NOTE | 2018-03-21 21:47 | PN ---
PROGRESS NOTE DATE OF SERVICE: 03/21/2018. PRESENTING COMPLAINT: Left hypothenar abscess. INTERVAL HISTORY: This patient who does IV Suboxone presented with left hypothenar abscess status post I and D. Pain is better controlled. Doing warm soaks on the open wound on IV antibiotics. REVIEW OF SYSTEMS: Done for constitutional, cardiovascular, GI, pulmonary musculoskeletal and relevant findings as above. CURRENT MEDICATIONS: Reviewed that include IV clindamycin, and IV Ancef. PHYSICAL EXAMINATION: VITAL SIGNS: Temperature 97.6, pulse 61, respirations 16, blood pressure 129/73, pulse ox 99 percent on room air. GENERAL APPEARANCE: Sitting up comfortable. EYES: Pupils equal. Conjunctivae normal. NECK: JVD not raised. RESPIRATORY: Effort normal. LUNGS: Are clear. CARDIOVASCULAR: 1st and 2nd sounds normal. No edema. ABDOMEN: Soft, nontender. Liver and spleen not palpable. PSYCHIATRY: Alert and oriented times three. Mood and affect normal. EXTREMITIES: Left in a dressing. Examination noted as per Orthopedics. INVESTIGATIONS: No blood work from today. The patient's left hand wound is growing beta-hemolytic Streptococcus F and Eikenella corrodens. ASSESSMENT: 1. Left hand hypothenar abscess, acute following IV Suboxone use, status post I and D, cultures growing beta-hemolytic Streptococcus and Eikenella corrodens. 2. Left hand cellulitis, acute, status post IV drugs. 3. IV Suboxone misuse. 4. Chronic nicotine dependence, patient is a cigarette smoker. 5. Recreational marijuana use. PLAN: Care was discussed with the patient. IV antibiotics to continue per Dr. Yoder. Warm soaks to continue. MMODL / IJN: [id number] /
[2018-03-21] MEDS: AMPICILLIN-SULBACTAM 3 GM in SODIUM CHLORIDE 0.9% 100 ML IVPB SCH (23:09)
--- NOTE | 2018-03-21 23:37 | PN ---
PROGRESS NOTE DATE OF SERVICE: 03/21/2018. REASON FOR FOLLOWUP: Left hand abscess and cellulitis. INTERVAL HISTORY: The patient is currently afebrile. He is breathing comfortably. Denies having any chest pain, shortness of breath or cough. No abdominal pain. No diarrhea. PHYSICAL EXAMINATION: Blood pressure 133/80 with a pulse of 91, temperature 98.2, he is 98% on room air. General description is a young male up in the bed in no distress. Respiratory system: Unlabored breathing. Clear to auscultation. Heart S1, S2. Regular rate and rhythm. Abdomen soft. The left hand still has significant swelling with decrease in the drainage. LABS: Wound culture now showing a Flores species with Staphylococcus. DIAGNOSTIC IMPRESSION/PLAN: Patient with left hand abscess from injection . The patient is status post drainage in view of the persistent cellulitis, now with wound cultures also showing Flores species. Antibiotic will be adjusted to Unasyn 3 g every 6 hours. The patient has been advised to stay in the hospital for another 48 hours. Local wound care with Aquacel Silver packing. Continue supportive care. MMODL / IJN: [id number] /
[2018-03-22 00:44] VITALS: TEMP 98.4
[2018-03-22] MEDS: AMPICILLIN-SULBACTAM 3 GM in SODIUM CHLORIDE 0.9% 100 ML IVPB SCH ×2 (05:09→12:26)
[2018-03-22] MEDS: ACETAMINOPHEN TAB 325 MG TAB PO SCH ×2 (05:10→11:41)
[2018-03-22] MEDS: SODIUM CHLORIDE 0.9% 1,000 ML IV SCH (05:17)
[2018-03-22 07:25] VITALS: BP 146/85; PULSE 71
[2018-03-22] MEDS: ENOXAPARIN 40 MG/0.4 ML SYRINGE SQ SCH (09:57)
--- NOTE | 2018-03-22 12:10 | P.PN ---
Subjective Progress Note Date: 03/22/18 This patient is a [id number] 27-year-old male with a long-standing history of drug abuse that is admitted to internal medicine for a left hand abscess. Per patient, he placed a Suboxone tablet in his mouth, chewed it until it was a paste, and injected it along the ulnar border of his hand to get high. He then experienced increasing swelling and pain to the hand, therefore he presented to the emergency department. He was admitted to internal medicine and an orthopedic consult was placed. Patient was taken to the operating room yesterday afternoon with Dr. Akbar for an incision and drainage of the left hand abscess. Today's postoperative day #4. Patient states he is doing well this morning. He states he feels like his hand has improved greatly over the past day, he states the swelling and redness has decreased. He denies pain in the left hand. He denies chest pain, shortness of breath, nausea, vomiting, fevers, or chills. Objective - Vital Signs Vital signs: Vital Signs Temp 98.4 F 03/22/18 00:43 Pulse 71 03/22/18 07:24 Resp 16 03/22/18 07:24 BP 146/85 03/22/18 07:24 Pulse Ox 97 03/22/18 07:24 Intake & Output 03/21/18 03/22/18 03/22/18 18:59 06:59 18:59 Intake Total 480 1680 Balance 480 1680 Intake: Intake, IV Titration 1440 Amount Sodium Chloride 0.9% 1, 1440 000 ml @ 120 mls/hr IV . Q8H20M [facility] Rx#:[id number] Oral 480 240 Other: # Voids 2 1 - Exam On examination, the patient is sitting up in bed in no acute distress. Patient is alert and oriented 3. Left hand is in a dressing, dressing is clean, dry, and intact. He is able to wiggle his fingers with no issue or pain. Left fingers are warm and well-perfused, with brisk capillary refill. - Labs CBC & Chem 7: 03/20/18 06:57 03/20/18 06:57 Labs: Microbiology - Last 24 Hours (Table) 03/18/18 00:55 Blood Culture - Preliminary Blood No Growth after 96 hours 03/18/18 15:22 Gram Stain - Final Hand - Left Wound Culture - Final Beta Hemolytic Streptococcus F Eikenella corrodens Assessment and Plan Assessment: Left hand abscess status-post incision and drainage IV drug abuse Plan: - Will defer wound care and antibiotics to infectious disease. - CT scan with contrast showed no evidence of further abscess of the hand or forearm. No additional surgical intervention planned at this time. - Patient ok for discharge from orthopedic standpoint. - Patient discussed with Dr. Akbar.
--- NOTE | 2018-03-22 16:18 | PN ---
PROGRESS NOTE DATE OF SERVICE: 03/22/2018. REASON FOR FOLLOWUP: Left hand abscess and cellulitis. INTERVAL HISTORY: The patient is currently afebrile. He is breathing comfortably. He was seen on rounds earlier this afternoon. No chest pain, shortness of breath or cough. Pain to the left hand has decreased. PHYSICAL EXAMINATION: Blood pressure 146/85 with a pulse of 71, temperature 98.4. He is 97% on room air. General description is a middle aged male up in the room in no distress. Respiratory system: Unlabored breathing. Clear to auscultation anteriorly. Heart S1, S2. Regular rate and rhythm. Abdomen soft, no tenderness. Left hand swelling and redness has decreased. No drainage. LABS: Hemoglobin 10.5, white count 5.5. Blood culture negative. Wound culture with and beta streptococcus anaerobic gram negative bacilli. DIAGNOSTIC IMPRESSION AND PLAN: Patient with left hand abscess from IV drug use. Patient does admit to licking of the needle before he injected more likely responsible for the that was seen on the cultures. Patient at this time antibiotic was switched to Augmentin 875 b.i.d. for 2 weeks. Local wound care with Aquacel dressing has been advised to follow up at the wound care center next week. Continue supportive care. MMODL / IJN: [id number] /
--- NOTE | 2018-03-22 21:57 | DS ---
DISCHARGE SUMMARY . DATE OF ADMISSION: March 18, 2018. DATE OF DISCHARGE: 03/22/2018. FINAL DIAGNOSES: 1. Acute left hand hypothenar abscesses from IV Suboxone use with cultures growing beta-hemolytic Streptococcus and Eikenella corrodens, status post I and D. 2. Acute left hand cellulitis from IV drug use. 3. IV Suboxone misuse. 4. Chronic nicotine dependence, patient is a cigarette smoker. 5. Recreational marijuana use. HOSPITAL COURSE: This gentleman has been using Suboxone in IV form mixed with water, presented with abscess of the left hand in the hypothenar area. A lot of pus was obtained. Cultures were positive for the above organism. Doing much better at the time of discharge. The patient also was doing warm water soaks as per Surgery. PHYSICAL EXAMINATION: Temperature 98.4, pulse 86, respirations 16, blood pressure 146/85, pulse ox 97% on room air. Left hand pain and swelling much improved. INVESTIGATIONS: White count 5.5, hemoglobin 10.5, potassium 4.5. The patient was repeatedly advised against use of any form of recreational drugs and IV drug abuse. CONSULTATION: Dr. Akbar from Orthopedics who did I and D. Dr. Yoder from Infectious Disease. DISCHARGE MEDICATIONS: 1. Augmentin 875 1 tablet p.o. q.12h 28 tablets. 2. Naproxen 500 mg q.12 20 tablets. FOLLOWUP: Follow up with Dr. Moi Maravilla in [place] in 3 days. Follow up with Dr. Yoder in 1 week. Follow up with Dr. Akbar in 2 weeks. Aquacel silver packing of the wound to continue as directed. The patient told not to go to work for at least 1 week until follow up with Dr. Yoder in the office. Copy to Dr. Maravilla [place]. MMODL / IJN: [id number] /
== END 2018-03-22 13:48 | disposition home or self-care (01) | DRG 580 ==
LOC: EC 23:26 → 4SSUR 03-18 02:13 → OBSVTOIN 03-20 15:09 → 4SSUR 03-21 20:38
PROVIDERS: ADMIT Hospitalist; ATTEND Hospitalist
PROC: 0J9K0ZZ Drainage of Left Hand Subcutaneous Tissue and Fascia, Open Approach (ICD-10-PCS; principal; 2018-03-18 15:00)
DX: L03.114 Cellulitis of left upper limb (principal); L02.512 Cutaneous abscess of left hand; F17.210 Nicotine dependence, cigarettes, uncomplicated; F12.10 Cannabis abuse, uncomplicated; F11.10 Opioid abuse, uncomplicated; B95.1 Streptococcus, group B, as the cause of diseases classified elsewhere; B96.89 Other specified bacterial agents as the cause of diseases classified elsewhere
CPT/HCPCS: 36415; 80048; 80053; 80202; 81003; 83605; 85025; 85610; 85730; 87040; 87070; 87075; 87086; 87205; 96365; 96366; 96375; 99284

== ENCOUNTER 2021-04-18 17:13 | Emergency (ER) | payer OTHER ==
[2021-04-18 17:18] VITALS: TEMP 98.6
--- NOTE | 2021-04-18 18:02 | ED ---
General Adult HPI - General Chief complaint: Back Pain/Injury Stated complaint: stomach problems Time Seen by Provider: 04/18/21 17:28 Source: patient, RN notes reviewed Mode of arrival: ambulatory Limitations: no limitations - History of Present Illness Initial comments: 30-year-old male presents to the emergency department accompanied by his mother for evaluation of low back numbness after having a bowel movement this afternoon. Patient states he had a bowel movement with some straining around 2:30 this afternoon and immediately experienced numbness spreading across his low back. Has been able to urinate without difficulty since this happpened. Denies any new or recent trauma or falls, no loss of bowel or bladder control, no foot drop, able to ambulate without difficulty, and is pain-free. - Related Data Previous Rx's Medication Instructions Recorded Ibuprofen [Motrin] 600 mg PO Q8HR PRN #30 tab 04/18/21 predniSONE 50 mg PO DAILY #4 tab 04/18/21 Allergies Allergy/AdvReac Type Severity Reaction Status Date / Time No Known Allergies Allergy Verified 04/18/21 20:32 Review of Systems ROS Statement: Those systems with pertinent positive or pertinent negative responses have been documented in the HPI. ROS Other: All systems not noted in ROS Statement are negative. Past Medical History Past Medical History: No Reported History History of Any Multi-Drug Resistant Organisms: None Reported Additional Past Surgical History / Comment(s): Surgey on previous abcess Past Psychological History: No Psychological Hx Reported Smoking Status: Current every day smoker Past Alcohol Use History: Rare Past Drug Use History: Heroin, IV Drug Use, Marijuana, Prescription Drug Abuse General Exam Limitations: no limitations General appearance: alert, in no apparent distress, anxious (Well-developed, well-nourished male in no acute distress, though is anxious. Initial temperature 98.6, pulse 124, respirations 22, blood pressure 150/86, pulse ox 99% on room air.) Respiratory exam: Present: normal lung sounds bilaterally. Absent: respiratory distress, wheezes, rales, rhonchi, stridor Cardiovascular Exam: Present: regular rate, normal rhythm, normal heart sounds. Absent: systolic murmur, diastolic murmur, rubs, gallop, clicks GI/Abdominal exam: Present: soft, normal bowel sounds, other (sensation to light touch intact across abdomen). Absent: distended, tenderness, guarding, rebound, rigid, bruit, pulsatile mass, hernia Extremities exam: Present: normal inspection, full ROM, normal capillary refill. Absent: tenderness, pedal edema, joint swelling, calf tenderness Expanded Back exam: Present: intact bulbocavernosus reflex, normal rectal tone, other (no sciatic notch tenderness. Reports altered sensation across low back with no focal area of pain or tenderness.). Absent: saddle anesthesia Back exam: Negative Straight Leg Raising: Left, Right Neurological exam: Present: alert, oriented X3, CN II-XII intact, normal gait. Absent: motor sensory deficit Psychiatric exam: Present: normal affect, normal mood Skin exam: Present: warm, dry, intact, normal color Course Vital Signs 04/18/21 04/18/21 04/18/21 17:16 19:48 20:08 Temperature 98.6 F Pulse Rate 124 H 122 H 99 Respiratory 22 18 18 Rate Blood Pressure 150/86 145/76 127/70 O2 Sat by Pulse 99 98 96 Oximetry 04/18/21 21:17 Temperature Pulse Rate 96 Respiratory 14 Rate Blood Pressure 135/84 O2 Sat by Pulse 96 Oximetry - Reevaluation(s) Reevaluation #1: 04/18/21 18:30 This patient's care was discussed with my attending, Dr. Babin. Given this patient's history of IVDA and vague nature of current complaint, laboratory studies and CT will be ordered to rule out abscess. Plan of care discussed with patient and mother, they are agreeable. 04/18/21 20:30 CT and laboratory results were discussed with patient. Plan of care was reviewed. Patient and mother verbalized understanding and agreed. Medical Decision Making - Medical Decision Making This is a 30-year-old male with a past medical history of IVDA who presents to the emergency department for evaluation of diminished sensation across the low back after having a bowel movement this afternoon. Upon exam, patient is nontoxic, well appearing, and in no acute distress. He is able to ambulate without difficulty and has a well coordinated gait. Vital signs are stable; the patient did arrive tachycardic, he was afebrile. Patient did not experience any loss of bowel or bladder control, urinary retention, saddle anesthesia, foot drop, or lower extremity weakness. Diminished sensation was superficial across the low back was not isolated to one area of the lumbar spine, nor did it correlate with the dermatome line. However, given patient's history and present complaint, laboratory studies were obtained with no acute findings. CT of the thoracic and lumbar spine was negative. Findings were discussed with patient and mother. He will be discharged home on a short course of oral steroid and instructed to follow up with his PCP for R recheck. Strict return parameters were discussed in detail. Patient and mother verbalized understanding and agreed with this plan. This patient's care was discussed with my attending Dr. Babin. - Lab Data Result diagrams: 04/18/21 19:37 04/18/21 19:37 Lab Results 04/18/21 04/18/21 Range/Units 19:37 19:37 WBC 6.7 (3.8-10.6) k/uL RBC 4.10 L (4.30-5.90) m/uL Hgb 12.5 L (13.0-17.5) gm/dL Hct 37.0 L (39.0-53.0) % MCV 90.2 (80.0-100.0) fL MCH 30.4 (25.0-35.0) pg MCHC 33.8 (31.0-37.0) g/dL RDW 12.3 (11.5-15.5) % Plt Count 214 (150-450) k/uL MPV 7.7 Neutrophils % 79 % Lymphocytes % 13 % Monocytes % 5 % Eosinophils % 1 % Basophils % 0 % Neutrophils # 5.3 (1.3-7.7) k/uL Lymphocytes # 0.9 L (1.0-4.8) k/uL Monocytes # 0.4 (0-1.0) k/uL Eosinophils # 0.1 (0-0.7) k/uL Basophils # 0.0 (0-0.2) k/uL ESR 8 (0-15) mm/hr Sodium 138 (137-145) mmol/L Potassium 4.0 (3.5-5.1) mmol/L Chloride 102 (98-107) mmol/L Carbon Dioxide 25 (22-30) mmol/L Anion Gap 11 mmol/L BUN 15 (9-20) mg/dL Creatinine 0.90 (0.66-1.25) mg/dL Est GFR (CKD-EPI)AfAm >90 (>60 ml/min/1.73 sqM) Est GFR (CKD-EPI)NonAf >90 (>60 ml/min/1.73 sqM) Glucose 91 (74-99) mg/dL Calcium 9.3 (8.4-10.2) mg/dL Total Bilirubin 0.4 (0.2-1.3) mg/dL AST 21 (17-59) U/L ALT 13 (4-49) U/L Alkaline Phosphatase 77 (38-126) U/L C-Reactive Protein 1.0 H (<1.0) mg/dL Total Protein 7.9 (6.3-8.2) g/dL Albumin 5.0 (3.5-5.0) g/dL - Radiology Data Radiology results: report reviewed, image reviewed CT of the thoracic and lumbar spine with contrast was obtained. Report was reviewed in its entirety. Impression per Dr. Ann as negative computed tomography scan of the thoracic and lumbar spine. Disposition Clinical Impression: Back pain associated with peripheral numbness Disposition: HOME SELF-CARE Condition: Stable Instructions (If sedation given, give patient instructions): Acute Low Back Pain (ED) Additional Instructions: Take steroid as directed. May take Tylenol or Motrin if needed for pain. Follow-up with your PCP for a recheck. Return to the emergency department with any loss of bowel or bladder control, urine retention, foot drop, or decreased sensation in the pelvic area. Prescriptions: Ibuprofen [Motrin] 600 mg PO Q8HR PRN #30 tab PRN Reason: Pain predniSONE 50 mg PO DAILY #4 tab Is patient prescribed a controlled substance at d/c from ED?: No Referrals: None,Stated [Primary Care Provider] - 1-2 days Time of Disposition: 21:12
[2021-04-18 20:06] LABS: Basophils % (A) 0 %; Eosinophils # (A) 0.1 k/uL (0-0.7); Eosinophils % (A) 1 %; HGB 12.5 gm/dL (13.0-17.5); Lymphocytes # (A) 0.9 k/uL (1.0-4.8); Lymphocytes % (A) 13 %; MCH 30.4 pg (25.0-35.0); MCHC 33.8 g/dL (31.0-37.0); MCV 90.2 fL (80.0-100.0); Mean Platelet Volume 7.7; Monocytes # (A) 0.4 k/uL (0-1.0); Monocytes % (A) 5 %; Neutrophils # (A) 5.3 k/uL (1.3-7.7); Neutrophils % (A) 79 %; Platelet Count 214 k/uL (150-450); RDW 12.3 % (11.5-15.5); WBC 6.7 k/uL (3.8-10.6)
[2021-04-18 20:24] LABS: ALT 13 U/L (4-49); AST 21 U/L (17-59); African American GFR (CKD) >90 (>60 ml/min/1.73 sqM); Alkaline Phosphatase 77 U/L (38-126); Anion Gap 11 mmol/L; Blood Urea Nitrogen 15 mg/dL (9-20); Calcium 9.3 mg/dL (8.4-10.2); Carbon Dioxide 25 mmol/L (22-30); Chloride 102 mmol/L (98-107); Glucose 91 mg/dL (74-99); Non-African American GFR(CKD) >90 (>60 ml/min/1.73 sqM); Sodium 138 mmol/L (137-145); Total Bilirubin 0.4 mg/dL (0.2-1.3); Total Protein 7.9 g/dL (6.3-8.2)
--- NOTE | 2021-04-18 20:25 | CT ---
EXAMINATION TYPE: CT thor lumbar spine w con DATE OF EXAM: 04/18/2021 COMPARISON: None HISTORY: back numbness CT DLP: 1144.5 mGycm Automated exposure control for dose reduction was used. CONTRAST: Performed with IV Contrast, patient injected with 100 mL of Isovue 300. Images obtained from the level of T1-S1 vertebra without contrast. Thoracic and lumbar vertebrae have normal alignment. There is no compression fracture. There is no th oracic paraspinal mass. The posterior elements are intact. Disc spaces are relatively well-maintained . There is no evidence of lumbar paraspinal mass. The sacroiliac joints are intact. There is no evide nce of thoracic or lumbar spinal stenosis. IMPRESSION: Negative CT scan of the thoracic and lumbar spine.
[2021-04-18] MEDS ORDERED: predniSONE 50 MG TAB PO STA (21:07)
[2021-04-18 21:11] LABS: Erythrocyte Sedimentation Rate 8 mm/hr (0-15)
[2021-04-18 21:19] VITALS: BP 135/84; PULSE 96; RESP 14
== END 2021-04-18 21:34 | disposition home or self-care (01) ==
LOC: EC 17:13
DX: M54.59 Other low back pain (principal); R20.2 Paresthesia of skin; F17.200 Nicotine dependence, unspecified, uncomplicated; F12.90 Cannabis use, unspecified, uncomplicated
CPT/HCPCS: 99284; 36415; 80053; 85652; 85025; 86140; 87040; 72129; 72132; J7512; Q9967

== ENCOUNTER 2022-06-05 00:47 | Observation (INO) | payer OTHER ==
[2022-06-05 01:02] VITALS: TEMP 97.8
--- NOTE | 2022-06-05 02:06 | ED ---
General Adult HPI - General Chief complaint: Overdose Stated complaint: overdose Time Seen by Provider: 06/05/22 00:54 Source: patient Mode of arrival: EMS Limitations: no limitations - History of Present Illness Initial comments: This is a 32-year-old male who presents emergency department via EMS after a reported overdose. The patient was brought in and was responsive on arrival, the patient did state that he was starting what he thought was cocaine bed and it being laced with likely fentanyl. The patient did receive 2 mg of Narcan intranasally 2 mg of Narcan IV. On arrival, the patient did require a third dose of Narcan. The patient denied any acute pain or distress but did state that he had some mild shortness of breath. The patient stated his never overdosed before and has never had anything like this happen to him. - Related Data Allergies Allergy/AdvReac Type Severity Reaction Status Date / Time No Known Allergies Allergy Verified 06/05/22 00:52 Review of Systems ROS Statement: Those systems with pertinent positive or pertinent negative responses have been documented in the HPI. ROS Other: All systems not noted in ROS Statement are negative. Past Medical History Past Medical History: Asthma History of Any Multi-Drug Resistant Organisms: None Reported Past Surgical History: Orthopedic Surgery Past Psychological History: No Psychological Hx Reported Smoking Status: Current every day smoker Past Alcohol Use History: Occasional General Exam Limitations: no limitations General appearance: alert, in no apparent distress Head exam: Present: atraumatic, normocephalic, normal inspection Eye exam: Present: normal appearance, PERRL Pupils: Present: normal accommodation ENT exam: Present: normal exam, normal oropharynx, mucous membranes moist Neck exam: Present: normal inspection, full ROM Respiratory exam: Present: wheezes (Mild expiratory wheezes heard bilaterally) Cardiovascular Exam: Present: regular rate, normal rhythm, normal heart sounds GI/Abdominal exam: Present: soft, normal bowel sounds Extremities exam: Present: normal inspection, full ROM Back exam: Present: normal inspection, full ROM Neurological exam: Present: alert, oriented X3, CN II-XII intact Psychiatric exam: Present: normal affect, normal mood Skin exam: Present: warm, dry Course Vital Signs 06/05/22 06/05/22 00:53 02:10 Temperature 97.8 F Pulse Rate 107 H Respiratory 20 8 L Rate Blood Pressure 148/88 O2 Sat by Pulse 100 Oximetry EKG Findings - EKG Comments: EKG Findings:: An EKG was obtained and was interpreted by myself showing a rate of 109, QRS duration of 105 and QTC of 425. This EKG showed a sinus tachycardia without any ST segment elevation or depression noted. There was some artifact secondary to patient motion. Medical Decision Making - Medical Decision Making Was pt. sent in by a medical professional or institution (ASHLEE Guzman, [employer], urgent care, hospital, or half-way...) When possible be specific @ -No Did you speak to anyone other than the patient for history (EMS, parent, family, police, friend...)? What history was obtained from this source @ -No Did you review nursing and triage notes (agree or disagree)? Why? @ -I reviewed and agree with nursing and triage notes Were old charts reviewed (outside hosp., previous admission, EMS record, old EKG, old radiological studies, urgent care reports/EKG's, half-way records)? Report findings @ -No old charts were reviewed Differential Diagnosis (chest pain, altered mental status, abdominal pain women, abdominal pain men, vaginal bleeding, weakness, fever, dyspnea, syncope, headache, dizziness, GI bleed, back pain, seizure, CVA, palpatations, mental health)? @ -Opiate overdose, pneumonia, aspiration pneumonia EKG interpreted by me (3pts min.). @ -As above X-rays interpreted by me (1pt min.). @ -Chest x-ray was obtained and was interpreted by myself showing no acute process. CT interpreted by me (1pt min.). @ -None done U/S interpreted by me (1pt. min.). @ -None done What testing was considered but not performed or refused? (CT, X-rays, U/S, labs)? Why? @ -None What meds were considered but not given or refused? Why? @ -None Did you discuss the management of the patient with other professionals (professionals i.e. ASHLEE Guzman, [employer], lab, RT, psych nurse, social science research assistant, yardage estimator, teacher, event security officer, household manager)? Give summary @ -Yes, the admitting team was contacted for admission as well as the cpr instructor as the patient is on a Narcan drip and needs the ICU. Was smoking cessation discussed for >3mins.? @ -Yes Was critical care preformed (if so, how long)? @ -Yes, see above Were there social determinants of health that impacted care today? How? (Homelessness, low income, unemployed, alcoholism, drug addiction, transpor tation, low edu. Level, literacy, decrease access to med. care, senior living, rehab)? @ -Drug addiction Was there de-escalation of care discussed even if they declined (Discuss DNR or withdrawal of care, Hospice)? DNR status @ -No What co-morbidities impacted this encounter? (DM, HTN, Smoking, COPD, CAD, Cancer, CVA, ARF, Chemo, Hep., AIDS, mental health diagnosis, sleep apnea, morbid obesity)? @ -None Was patient admitted / discharged? Hospital course, mention meds given and route, prescriptions, significant lab abnormalities, going to OR and other pertinent info. @ -The patient was seen and evaluated in the emergency department. Physical exam, the patient was awake on arrival however needed a third dose of Narcan. Vital signs did however remain stable. Initially, the patient was observed however within the first hour the patient became hypoxic and needed more Narcan therefore the patient was started on Narcan drip. Laboratory workup was obtained as was a chest x-ray because of this. The cpr instructor and admitting physician were contacted and the patient was admitted in stable condition on a Narcan drip to the ICU. Undiagnosed new problem with uncertain prognosis? @ -No Drug Therapy requiring intensive monitoring for toxicity (Heparin, Nitro, Insulin, Cardizem)? @ -Narcan Were any procedures done? @ -No Diagnosis/symptom? @ -Opiate overdose Acute, or Chronic, or Acute on Chronic? @ -Acute Uncomplicated (without systemic symptoms) or Complicated (systemic symptoms)? @ -Complicated Side effects of treatment? @ -No Exacerbation, Progression, or Severe Exacerbation? @ -No Poses a threat to life or bodily function? How? (Chest pain, [place], PR, pneumonia, PE, COPD, DKA, ARF, appy, cholecystitis, CVA, Diverticulitis, Homicidal, Suicidal, threat to staff... and all critical care pts) @ -Yes, continued overdose can lead to continued hypoxia, permanent damage and possible . Critical Care Time Critical Care Time: Yes Total Critical Care Time: 34 Disposition Clinical Impression: Opiate overdose Disposition: ADMITTED IP TO THIS HOSP Condition: Fair Is patient prescribed a controlled substance at d/c from ED?: No Referrals: None,Stated [Primary Care Provider] - 1-2 days Time of Disposition: 02:00 Decision to Admit Reason: Admit from EC Decision Date: 06/05/22 Decision Time: 02:00
--- NOTE | 2022-06-05 02:09 | XR ---
EXAM: XR Chest, 2 Views CLINICAL HISTORY: ITS.REASON XR Reason: OVERDOSE TECHNIQUE: Frontal and lateral views of the chest. COMPARISON: No previous studies. FINDINGS: Lungs: Probable subsegmental atelectasis at the left lung base. Pleural space: Unremarkable. No pneumothorax. No pleural effusions. Heart: Unremarkable. No cardiomegaly. Mediastinum: Cardiomediastinal silhouette unremarkable. Bones/joints: The osseous structures and soft tissues are unremarkable. IMPRESSION: Probable subsegmental atelectasis in the left lung base.
[2022-06-05] MEDS: NALOXONE (MDV) 2 MG in SODIUM CHLORIDE 0.9% 250 ML IV SCH ×2 (02:10→05:13)
[2022-06-05] MEDS ORDERED: NALOXONE 0.4 MG/ML 1 ML VIAL IV PRN (02:17)
[2022-06-05] MEDS ORDERED: NALOXONE 0.4 MG/ML 1 ML VIAL IM STA (02:19)
[2022-06-05] MEDS ORDERED: NALOXONE 0.4 MG/ML 1 ML VIAL IVP STA (02:20)
[2022-06-05 03:11] LABS: ALT 18 U/L (4-49); AST 26 U/L (17-59); African American GFR (CKD) >90 (>60 ml/min/1.73 sqM); Albumin 4.3 g/dL (3.5-5.0); Alkaline Phosphatase 67 U/L (38-126); Anion Gap 14 mmol/L; Blood Urea Nitrogen 9 mg/dL (9-20); Calcium 8.8 mg/dL (8.4-10.2); Carbon Dioxide 23 mmol/L (22-30); Chloride 104 mmol/L (98-107); Glucose 114 mg/dL (74-99); Lipase 74 U/L (23-300); Magnesium 1.9 mg/dL (1.6-2.3); Non-African American GFR(CKD) >90 (>60 ml/min/1.73 sqM); Potassium 3.6 mmol/L (3.5-5.1); Sodium 141 mmol/L (137-145); Total Bilirubin 0.2 mg/dL (0.2-1.3); Total Protein 7.5 g/dL (6.3-8.2)
[2022-06-05] MEDS ORDERED: SODIUM CHLORIDE 0.9% 1,000 ML IV ONE (03:17)
[2022-06-05 03:37] LABS: VBG PH 7.31 (7.31-7.41)
[2022-06-05 04:14] LABS: Basophils % (A) 0 %; Eosinophils # (A) 0.1 k/uL (0-0.7); Eosinophils % (A) 2 %; HCT 39.2 % (39.0-53.0); HGB 13.2 gm/dL (13.0-17.5); Lymphocytes % (A) 26 %; MCH 30.8 pg (25.0-35.0); MCHC 33.6 g/dL (31.0-37.0); MCV 91.8 fL (80.0-100.0); Mean Platelet Volume 8.1; Monocytes # (A) 0.5 k/uL (0-1.0); Monocytes % (A) 6 %; Neutrophils % (A) 64 %; Platelet Count 235 k/uL (150-450); RBC 4.27 m/uL (4.30-5.90); RDW 12.9 % (11.5-15.5); WBC 7.9 k/uL (3.8-10.6)
[2022-06-05 06:11] LABS: Amphetamine Screen,Urine Not Detected (NotDetected); Barbiturate Screen,Urine Not Detected (NotDetected); Benzodiazepines Screen,Urine Not Detected (NotDetected); Cocaine Screen,Urine Not Detected (NotDetected); Methadone Screen, Urine Not Detected (NotDetected); Opiate Screen,Urine Not Detected (NotDetected); Oxycodone Screen, Urine Not Detected (NotDetected); Phencyclidine Screen,Urine Not Detected (NotDetected); Tricyclic Antidepressant,Urine Not Detected (NotDetected); Urn Cannabinoid Scrn Detected (NotDetected)
[2022-06-05] MEDS ORDERED: ONDANSETRON 4 MG/2 ML VIAL IVP PRN (06:55)
[2022-06-05] MEDS ORDERED: ACETAMINOPHEN TAB 325 MG TAB PO PRN (06:55)
[2022-06-05] MEDS ORDERED: PANTOPRAZOLE 40 MG/10 ML VIAL IVP SCH (09:00)
[2022-06-05] MEDS ORDERED: POTASSIUM CHLORIDE ER 20 MEQ TAB.ER PO STA (11:32)
--- NOTE | 2022-06-05 11:35 | P.HPIM ---
History of Present Illness 32-year-old male who was admitted for drug overdose which was thought to be cocaine laced with fentanyl. Patient's arterial requirements have come down patient was on Narcan drip which was subsequently discontinued patient still has constricted pupils patient was positive for marijuana cocaine was not present in the urine drug screen. Patient admits to using IV drugs in the past many years ago never was tested for hepatitis. Patient is alert and oriented 3, chest x- ray showed mild subsegmental atelectasis patient doesn't have any fever chills. Doesn't have any leukocytosis. REVIEW OF SYSTEMS: CONSTITUTIONAL: No fever, no malaise, no fatigue. HEENT: No recent visual problems or hearing problems. Denied any sore throat. CARDIOVASCULAR: No chest pain, orthopnea, PND, no palpitations, no syncope. PULMONARY: No shortness of breath, no cough, no hemoptysis. GASTROINTESTINAL: No diarrhea, no nausea, no vomiting, no abdominal pain. NEUROLOGICAL: No headaches, no weakness, no numbness. HEMATOLOGICAL: Denies any bleeding or petechiae. GENITOURINARY: Denies any burning micturition, frequency, or urgency. MUSCULOSKELETAL/RHEUMATOLOGICAL: Denies any joint pain, swelling, or any muscle pain. ENDOCRINE: Denies any polyuria or polydipsia. The rest of the 14-point review of systems is negative. PHYSICAL EXAMINATION: GENERAL: The patient is alert and oriented x3, not in any acute distress. Well developed, well nourished. HEENT: Pupils are still bit constricted. EOMI. No scleral icterus. No conjunctiv al pallor. Normocephalic, atraumatic. No pharyngeal erythema. No thyromegaly. CARDIOVASCULAR: S1 and S2 present. No murmurs, rubs, or gallops. PULMONARY: Chest is clear to auscultation, no wheezing or crackles. ABDOMEN: Soft, nontender, nondistended, normoactive bowel sounds. No palpable organomegaly. MUSCULOSKELETAL: No joint swelling or deformity. EXTREMITIES: No cyanosis, clubbing, or pedal edema. NEUROLOGICAL: Gross neurological examination did not reveal any focal deficits. SKIN: No rashes. Assessment and plan -Possible cocaine and fentanyl overdose received Marcaine still requiring 2 L of oxygen, patient will be weaned off oxygen before his discharge -History of IV drug abuse in the past which he is not doing that anymore will test for hepatitis C and B -Marijuana use -Hyperkalemia: Potassium will be replaced Patient will be discharged later today if we can wean off oxygen Past Medical History Past Medical History: Asthma History of Any Multi-Drug Resistant Organisms: None Reported Past Surgical History: Orthopedic Surgery Past Psychological History: No Psychological Hx Reported Smoking Status: Current every day smoker Past Alcohol Use History: Occasional Medications and Allergies Home Medications Medication Instructions Recorded Confirmed Type No Known Home Medications 06/05/22 06/05/22 History Allergies Allergy/AdvReac Type Severity Reaction Status Date / Time No Known Allergies Allergy Verified 06/05/22 10:28 Physical Exam Vitals: Vital Signs Temp Pulse Resp BP Pulse Ox 06/05/22 11:19 100 20 120/78 93 L 06/05/22 09:00 84 18 100/52 95 06/05/22 05:32 100 12 100/66 95 06/05/22 05:13 12 06/05/22 03:11 98 15 94/48 98 06/05/22 02:10 8 L 06/05/22 01:50 6 L 06/05/22 00:53 97.8 F 107 H 20 148/88 100 Intake and Output 06/04/22 06/05/22 06/05/22 22:59 06:59 14:59 Intake Total 232.50 Balance 232.50 Intake: Intake, IV Titration 232.50 Amount Naloxone (Mdv) 2 mg In 232.50 Sodium Chloride 0.9% 250 ml @ 0.6 MG/HR 75 mls/hr IV .Q3H20M [facility] Rx#: [id number] Other: Weight 72.575 kg Results CBC & Chem 7: 06/05/22 02:01 06/05/22 02:01 Labs: Abnormal Lab Results - Last 24 Hours (Table) 06/05/22 06/05/22 06/05/22 Range/Units 02:01 02:01 03:23 RBC 4.27 L (4.30-5.90) m/uL VBG HCO3 23 L (24-28) mmol/L Glucose 114 H (74-99) mg/dL U Marijuana (THC) Screen (NotDetected) 06/05/22 Range/Units 05:30 RBC (4.30-5.90) m/uL VBG HCO3 (24-28) mmol/L Glucose (74-99) mg/dL U Marijuana (THC) Screen Detected H (NotDetected)
--- NOTE | 2022-06-05 11:37 | P.DS ---
Providers Date of admission: 06/05/22 02:17 Attending physician: Sukhi Andrews Primary care physician: Stated None Hospital Course: Refer to [facility] for further details Patient Condition at Discharge: Fair Plan - Discharge Summary New Discharge Prescriptions: No Action No Known Home Medications Discharge Medication List No Known Home Medications 06/05/22 [History] Follow up Appointment(s)/Referral(s): Pranav Hazel MD [STAFF PHYSICIAN] - 1 Week Activity/Diet/Wound Care/Special Instructions: Patient will need a ride on discharge and cannot drive, patient's oxygen need to be weaned off before discharge Discharge Disposition: HOME SELF-CARE
[2022-06-05 15:17] VITALS: RESP 20
[2022-06-05 15:19] VITALS: BP 126/86; PULSE 98
== END 2022-06-05 15:18 | disposition home or self-care (01) ==
LOC: EC 00:47 → MERGE 02:17 → INTOOBSV 02:17 → 2SICU 02:17 → UNDODISIN 15:24
PROVIDERS: ADMIT Hospitalist; ATTEND Hospitalist
DX: T40.601A Poisoning by unspecified narcotics, accidental (unintentional), initial encounter (principal); F12.90 Cannabis use, unspecified, uncomplicated; E87.5 Hyperkalemia; J45.909 Unspecified asthma, uncomplicated; F17.200 Nicotine dependence, unspecified, uncomplicated
CPT/HCPCS: 96365; 96366; 96375; 99291; 99406; 93005; 80053; 82550; 82803; 83605; 83690; 83735; 84484; 85025; 80306; 71046; G0378; J2310 ×2; J2405; C9113